=== PATIENT | female | born 1960 | race Caucasian/White ===

== ENCOUNTER 2017-08-01 07:21 | Day surgery (SDC) | payer MEDICARE, MEDICAID ==
[2017-08-01] MEDS: NS 1,000 ML IV (07:45)
[2017-08-01] MEDS ORDERED: PROPOFOL 200 MG/20 ML VIAL As Ordered (07:55)
== END 2017-08-01 09:45 | disposition home or self-care (01) ==
LOC: M OPP 07:21
DX: K31.9 Disease of stomach and duodenum, unspecified (principal); T18.2XXA Foreign body in stomach, initial encounter; R10.13 Epigastric pain; I10 Essential (primary) hypertension; K21.9 Gastro-esophageal reflux disease without esophagitis; E03.9 Hypothyroidism, unspecified; F32.9 Major depressive disorder, single episode, unspecified; F41.9 Anxiety disorder, unspecified; R06.83 Snoring; K86.1 Other chronic pancreatitis; Z79.899 Other long term (current) drug therapy; Z90.710 Acquired absence of both cervix and uterus; Z87.891 Personal history of nicotine dependence; Y92.9 Unspecified place or not applicable
CPT/HCPCS: 43239

== ENCOUNTER → 2017-08-21 | Outpatient (CLI) | payer MEDICARE, MEDICAID | LOC: M RAD 08:43 | DX: T18.2XXA Foreign body in stomach, initial encounter (principal) | CPT/HCPCS: 78264 ==

== ENCOUNTER → 2017-09-06 | Outpatient (CLI) | payer MEDICARE, MEDICAID ==
[~2017-09-06] MED LIST: E-Z-GAS II EFFERVESCENT PACKET (SODIUM BICARB./CITRIC ACID/SIMETHICONE) As Ordered; E-Z-HD 98% w/w 340GM SUSP BTL As Ordered; E-Z-PAQUE 96% w/w SUSP 176GM BTL As Ordered
== END ==
LOC: M RAD 09:37
DX: T18.2XXA Foreign body in stomach, initial encounter (principal); Y92.9 Unspecified place or not applicable
CPT/HCPCS: 74241

== ENCOUNTER 2017-10-10 07:48 | Day surgery (SDC) | payer MEDICARE, MEDICAID ==
[2017-10-10] MEDS ORDERED: PROPOFOL 500 MG/50 ML VIAL As Ordered ×4 (07:56→07:57)
[2017-10-10] MEDS ORDERED: LIDOCAINE 2% INJ 100 MG/5 ML SDV (FOR ANES.) As Ordered ×2 (08:04)
[2017-10-10] MEDS ORDERED: fentaNYL 100 MCG/2 ML INJECTION (J3010) As Ordered ×2 (08:04)
[2017-10-10] MEDS: NS 1,000 ML IV ×2 (08:20)
== END 2017-10-10 09:31 | disposition home or self-care (01) ==
LOC: M OPP 07:48
DX: K29.70 Gastritis, unspecified, without bleeding (principal); K31.7 Polyp of stomach and duodenum; T18.2XXA Foreign body in stomach, initial encounter; I10 Essential (primary) hypertension; M12.9 Arthropathy, unspecified; F41.9 Anxiety disorder, unspecified; F32.9 Major depressive disorder, single episode, unspecified; R06.83 Snoring; Z79.899 Other long term (current) drug therapy; Z90.711 Acquired absence of uterus with remaining cervical stump; Z87.19 Personal history of other diseases of the digestive system; Z98.1 Arthrodesis status; Z82.49 Family history of ischemic heart disease and other diseases of the circulatory system; Z83.3 Family history of diabetes mellitus; Y92.89 Other specified places as the place of occurrence of the external cause; Y93.89 Activity, other specified; X58.XXXA Exposure to other specified factors, initial encounter; Y99.8 Other external cause status
CPT/HCPCS: 43251

== ENCOUNTER → 2021-10-14 | Outpatient (CLI) | payer MEDICARE, MEDICAID ==
[~2021-10-14] MED LIST changes: +ALLE180T33 PO; +DULO1CAP5 PO; +DULO1CAP6 PO; -E-Z-GAS II EFFERVESCENT PACKET (SODIUM BICARB./CITRIC ACID/SIMETHICONE) As Ordered; -E-Z-HD 98% w/w 340GM SUSP BTL As Ordered; -E-Z-PAQUE 96% w/w SUSP 176GM BTL As Ordered; +ESTR25VL IM; +FLON1SPR; +LEVO25TA5 PO; +LISI5TAB11 PO; +OMEP1CAP73 PO
== END ==
LOC: M RAD 16:06
PROVIDERS: ATTEND Physician Assistant Medical
DX: J32.9 Chronic sinusitis, unspecified (principal)

== ENCOUNTER 2021-10-24 08:57 | Outpatient (RCR) | payer MEDICARE, MEDICAID | END 2021-10-27 | LOC: M PT 08:57 | PROVIDERS: ATTEND Physician Assistant Medical | DX: H92.03 Otalgia, bilateral (principal) ==

== ENCOUNTER 2021-11-15 09:00 | Outpatient (RCR) | payer MEDICARE, MEDICAID | END 2021-11-27 | LOC: M PT 09:00 | PROVIDERS: ATTEND Physician Assistant Medical | DX: M26.609 Unspecified temporomandibular joint disorder, unspecified side (principal) ==

== ENCOUNTER 2021-12-05 09:06 | Outpatient (RCR) | payer MEDICARE, MEDICAID | END 2021-12-28 | LOC: M PT 09:06 | PROVIDERS: ATTEND Physician Assistant Medical | DX: H92.03 Otalgia, bilateral (principal); M26.609 Unspecified temporomandibular joint disorder, unspecified side ==